=== PATIENT | female | born 1985 | race Caucasian/White ===

== ENCOUNTER 2017-10-12 11:28 | Emergency (ER) | payer MEDICAID ==
[~2017-10-12] VITALS: Ht 149.9 cm; Wt 49.9 kg
[2017-10-12 11:37] VITALS: Ht 149.9 cm; Wt 49.9 kg
[2017-10-12 13:18] VITALS: BP 120/64
== END 2017-10-12 13:18 | disposition home or self-care (01) ==
LOC: ED 11:28
DX: S29.012A Strain of muscle and tendon of back wall of thorax, initial encounter (principal); J06.9 Acute upper respiratory infection, unspecified; X58.XXXA Exposure to other specified factors, initial encounter; Y93.89 Activity, other specified; Y99.8 Other external cause status; Y92.89 Other specified places as the place of occurrence of the external cause
CPT/HCPCS: J1885; Q0092

== ENCOUNTER 2017-10-14 09:24 | Emergency (ER) | payer MEDICAID ==
[~2017-10-14] VITALS: Ht 149.9 cm; Wt 50.3 kg
[2017-10-14 09:28] VITALS: BP 141/90; Ht 149.9 cm; Wt 50.3 kg
== END 2017-10-14 10:10 | disposition home or self-care (01) ==
LOC: ED 09:24
DX: F45.8 Other somatoform disorders (principal)

== ENCOUNTER 2018-08-19 19:59 | Emergency (ER) | payer MEDICAID ==
[~2018-08-19] VITALS: Ht 144.8 cm; Wt 51.8 kg
[2018-08-19 20:28] VITALS: Ht 144.8 cm; Wt 51.8 kg
[2018-08-19 23:01] VITALS: BP 103/71
== END 2018-08-19 23:01 | disposition home or self-care (01) ==
LOC: ED 19:59
DX: N39.0 Urinary tract infection, site not specified (principal); L03.311 Cellulitis of abdominal wall
CPT/HCPCS: 82962

== ENCOUNTER 2018-12-25 21:45 | Emergency (ER) | payer MEDICAID ==
[~2018-12-25] VITALS: Ht 154.9 cm; Wt 50.8 kg
[2018-12-25 21:50] VITALS: Ht 154.9 cm; Wt 50.8 kg
[2018-12-26 00:19] VITALS: BP 114/76
== END 2018-12-26 00:19 | disposition home or self-care (01) ==
LOC: ED 21:45
DX: R07.89 Other chest pain (principal); F43.0 Acute stress reaction
CPT/HCPCS: 82962; Q0092